=== PATIENT | female | born 1985 | race Caucasian/White ===

== ENCOUNTER 2023-01-07 11:39 | Emergency (ER) | payer OTHER ==
[~2023-01-07] VITALS: Ht 175.3 cm; Wt 98.1 kg
[2023-01-07] MEDS ORDERED: CYCLOBENZAPRINE HCL 10 MG TAB PO ONE (12:15)
[2023-01-07] MEDS ORDERED: KETOROLAC TROMETHAMINE 60 MG/2 ML VIAL IM ONE (12:15)
[2023-01-07] MEDS ORDERED: KETOROLAC TROMETHAMINE 60 MG/2 ML VIAL ONE (12:18)
[2023-01-07] MEDS ORDERED: CYCLOBENZAPRINE HCL 10 MG TAB ONE (12:18)
[2023-01-07] MEDS ORDERED: METHOCARBAMOL500 MG PO (13:41)
[2023-01-07] MEDS ORDERED: NAPROSYN500 MG PO (13:41)
[2023-01-07 13:57] VITALS: O2SAT 100
[2023-01-07] MEDS ORDERED: TRAMADOL HCL 50 MG TAB PO ONE (14:00)
== END 2023-01-07 13:57 | disposition home or self-care (01) ==
LOC: FSED 11:47
DX: S39.012A Strain of muscle, fascia and tendon of lower back, initial encounter (principal); M53.3 Sacrococcygeal disorders, not elsewhere classified; W18.2XXA Fall in (into) shower or empty bathtub, initial encounter; Y93.E1 Activity, personal bathing and showering; Y92.89 Other specified places as the place of occurrence of the external cause
CPT/HCPCS: 72100; 72220; 81003; 81025; 96372; 99283; J1885